=== PATIENT | female | born 1950 | race Caucasian/White ===

== ENCOUNTER 2017-05-01 15:20 | Inpatient (IN) | payer OTHER ==
[~2017-05-01] VITALS: Ht 172.7 cm; Wt 87.2 kg
[~2017-05-01 15:20] MED LIST: ASPI325 PO; ASPI325EC PO
[2017-05-01 16:35] LABS: BASOPHILS ABSOLUTE AUTO 0.02 K/mm3 (0.00-0.23); BASOPHILS PERCENT AUTO 0 % (0-2); EOSINOPHILS PERCENT AUTO 0 % (0-6); Hematocrit 42.7 % (33.0-51.0); Hemoglobin 13.7 g/dL (11.5-16.0); IMMATURE GRAN ABSOLUTE AUTO 0.06 K/mm3 (0.00-0.10); IMMATURE GRAN PERCENT AUTO 1 % (0-1); LYMPHOCYTES ABSOLUTE AUTO 0.73 K/mm3 (0.84-5.20); LYMPHOCYTES PERCENT AUTO 8 % (21-46); MONOCYTES ABSOLUTE AUTO 0.55 K/mm3 (0.16-1.47); MONOCYTES PERCENT AUTO 6 % (4-13); Mean Corpuscular HGB 28.3 pg (26.0-34.0); Mean Corpuscular HGB Conc 32.1 g/dL (31.5-36.5); Mean Corpuscular Volume 88 fL (80-100); Mean Platelet Volume 10.1 fL (9.1-12.4); NEUTROPHILS PERCENT AUTO 85 % (41-73); Platelet Count 175 K/mm3 (150-400); RDW Coefficient Variation 12.5 % (11.7-14.2); RDW Standard Deviation 40.8 fL (35.1-46.3); Red Blood Cell Count 4.84 M/mm3 (3.80-5.20); White Blood Cell Count 9.26 K/mm3 (4.00-11.30)
[2017-05-01 16:48] LABS: International Normalized Ratio 0.96
[2017-05-01 16:52] LABS: Alanine Aminotransfer (ALT/SGP 17 U/L (12-78); Albumin, Blood 2.6 g/dL (3.4-5.0); Albumin/Globulin Ratio 0.5 (0.8-1.8); Alk Phos 130 U/L (50-136); Anion Gap 12 mmol/L (6-16); Aspartate Aminotrans (AST/SGOT 26 U/L (12-37); Bilirubin, Total 0.5 mg/dL (0.1-1.0); Blood Urea Nitrogen 29 mg/dL (8-24); Bun/Creatinine Ratio 43.7 (12.0-20.0); CO2, Blood 27 mmol/L (21-32); Calcium, Blood 8.4 mg/dL (8.5-10.1); Chloride, Blood 92 mmol/L (98-108); Creatinine, Blood 0.66 mg/dL (0.40-1.00); Globulin, Blood 4.8 g/dL (2.2-4.0); Glomerular Filtration Rate >60 (60-); Glucose, Blood 329 mg/dL (70-99); Potassium, Blood 4.1 mmol/L (3.5-5.5); Sodium, Blood 131 mmol/L (136-145); Total Protein, Blood 7.4 g/dL (6.4-8.2)
[2017-05-01 18:04] LABS: Influenza A Negative (NEGATIVE); Influenza B Negative (NEGATIVE)
[2017-05-01] MEDS ORDERED: ACET325 PO (22:05)
[2017-05-01] MEDS ORDERED: ASPI325 PO (22:07)
[2017-05-01 23:06] LABS: Adenovirus Not Detected (NOT DETECT); Bordetella pertussis Not Detected (NOT DETECT); Chlamydophila pneumoniae Not Detected (NOT DETECT); Coronavirus 229E Not Detected (NOT DETECT); Coronavirus HKU1 Not Detected (NOT DETECT); Coronavirus NL63 Not Detected (NOT DETECT); Coronavirus OC43 Not Detected (NOT DETECT); Human Metapneumovirus Not Detected (NOT DETECT); Human Rhinovirus/Enterovirus Not Detected (NOT DETECT); Influenza A/2009-H1 Not Detected (NOT DETECT); Influenza A/H1 Not Detected (NOT DETECT); Influenza A/H3 Not Detected (NOT DETECT); Influenza B Not Detected (NOT DETECT); Mycoplasma pneumoniae Not Detected (NOT DETECT); Parainfluenza Virus 1 Not Detected (NOT DETECT); Parainfluenza Virus 2 Not Detected (NOT DETECT); Parainfluenza Virus 3 Not Detected (NOT DETECT); Parainfluenza Virus 4 Not Detected (NOT DETECT); Respiratory Syncytial Virus Not Detected (NOT DETECT)
[2017-05-02 01:26] LABS: Influenza A Not Detected (NOT DETECT)
[2017-05-02 02:41] LABS: Source, Urine Voided
[2017-05-02 02:44] LABS: Bilirubin, Urine Neg (Neg); Blood, Urine 3+ (Neg); Glucose Qualitative, Urine 4+ (Neg); Ketones, Urine 3+ (Neg); Leukocyte Esterase, Urine Neg (Neg); Nitrite, Urine Neg (Neg); Protein, Urine 4+ (Neg); Specific Gravity, Urine 1.015 (1.003-1.022); Urobilinogen, Urine NORM (Normal)
[2017-05-02 03:05] LABS: Appearance, Urine Hazy (Clear); Color, Urine Yellow (P-Yellow)
[2017-05-02 03:09] LABS: Amorphous Mod (0-Heavy); Bacteria Few /hpf; Squamous Epithelial Cells Mod /hpf (Few); White Blood Cells, Urine Rare /hpf (0-5)
[2017-05-02 05:34] LABS: BASOPHILS ABSOLUTE AUTO 0.03 K/mm3 (0.00-0.23); BASOPHILS PERCENT AUTO 0 % (0-2); Hematocrit 43.1 % (33.0-51.0); Hemoglobin 13.6 g/dL (11.5-16.0); LYMPHOCYTES ABSOLUTE AUTO 0.51 K/mm3 (0.84-5.20); LYMPHOCYTES PERCENT AUTO 6 % (21-46); MONOCYTES ABSOLUTE AUTO 0.39 K/mm3 (0.16-1.47); MONOCYTES PERCENT AUTO 5 % (4-13); Mean Corpuscular HGB 28.5 pg (26.0-34.0); Mean Corpuscular HGB Conc 31.6 g/dL (31.5-36.5); Mean Corpuscular Volume 90 fL (80-100); Mean Platelet Volume 9.9 fL (9.1-12.4); Platelet Count 200 K/mm3 (150-400); RDW Coefficient Variation 12.9 % (11.7-14.2); RDW Standard Deviation 42.6 fL (35.1-46.3); Red Blood Cell Count 4.77 M/mm3 (3.80-5.20); White Blood Cell Count 7.91 K/mm3 (4.00-11.30)
[2017-05-02 05:41] LABS: EOSINOPHILS PERCENT AUTO 0 % (0-6); IMMATURE GRAN ABSOLUTE AUTO 0.11 K/mm3 (0.00-0.10); IMMATURE GRAN PERCENT AUTO 1 % (0-1); NEUTROPHILS ABSOLUTE AUTO 6.87 K/mm3 (1.96-9.15); NEUTROPHILS PERCENT AUTO 87 % (41-73)
[2017-05-02 06:01] LABS: Anion Gap 10 mmol/L (6-16); Blood Urea Nitrogen 31 mg/dL (8-24); Bun/Creatinine Ratio 42.3 (12.0-20.0); CO2, Blood 24 mmol/L (21-32); Chloride, Blood 96 mmol/L (98-108); Creatinine, Blood 0.73 mg/dL (0.40-1.00); Glomerular Filtration Rate >60 (60-); Glucose, Blood 382 mg/dL (70-99); Potassium, Blood 4.7 mmol/L (3.5-5.5); Sodium, Blood 130 mmol/L (136-145)
[2017-05-02 10:46] LABS: Source, Urine Catheter
[2017-05-02 11:04] LABS: Bilirubin, Urine Neg (Neg); Blood, Urine 1+ (Neg); Glucose Qualitative, Urine 4+ (Neg); Ketones, Urine 1+ (Neg); Leukocyte Esterase, Urine Neg (Neg); Nitrite, Urine Neg (Neg); Protein, Urine 3+ (Neg); Urobilinogen, Urine NORM (Normal)
[2017-05-02 11:10] LABS: Appearance, Urine Cloudy (Clear); Color, Urine Yellow (P-Yellow)
[2017-05-02 11:14] LABS: Amorphous Heavy (0-Heavy); Bacteria Few /hpf; Red Blood Cells, Urine 0-2 /hpf (0-2); Squamous Epithelial Cells Not Seen /hpf (Few); White Blood Cells, Urine 0-2 /hpf (0-5)
[2017-05-02 13:55] LABS: Glucose, Blood 551 mg/dL (70-99)
[2017-05-02 18:13] LABS: Anion Gap 8 mmol/L (6-16); Blood Urea Nitrogen 34 mg/dL (8-24); Bun/Creatinine Ratio 38.7 (12.0-20.0); CO2, Blood 26 mmol/L (21-32); Calcium, Blood 7.9 mg/dL (8.5-10.1); Chloride, Blood 97 mmol/L (98-108); Creatinine, Blood 0.88 mg/dL (0.40-1.00); Glomerular Filtration Rate >60 (60-); Glucose, Blood 433 mg/dL (70-99); Potassium, Blood 4.7 mmol/L (3.5-5.5); Sodium, Blood 131 mmol/L (136-145)
[2017-05-03 05:14] LABS: Hematocrit 37.1 % (33.0-51.0); Mean Corpuscular HGB 28.4 pg (26.0-34.0); Mean Corpuscular HGB Conc 32.3 g/dL (31.5-36.5); Mean Corpuscular Volume 88 fL (80-100); Mean Platelet Volume 10.1 fL (9.1-12.4); Platelet Count 231 K/mm3 (150-400); RDW Coefficient Variation 12.9 % (11.7-14.2); RDW Standard Deviation 41.4 fL (35.1-46.3); Red Blood Cell Count 4.23 M/mm3 (3.80-5.20); White Blood Cell Count 7.99 K/mm3 (4.00-11.30)
[2017-05-03 05:35] LABS: Anion Gap 4 mmol/L (6-16); Blood Urea Nitrogen 34 mg/dL (8-24); Bun/Creatinine Ratio 43.1 (12.0-20.0); CO2, Blood 27 mmol/L (21-32); Calcium, Blood 7.8 mg/dL (8.5-10.1); Chloride, Blood 99 mmol/L (98-108); Creatinine, Blood 0.79 mg/dL (0.40-1.00); Glomerular Filtration Rate >60 (60-); Glucose, Blood 310 mg/dL (70-99); Sodium, Blood 130 mmol/L (136-145)
[2017-05-05 05:44] LABS: Hematocrit 37.4 % (33.0-51.0); Hemoglobin 12.2 g/dL (11.5-16.0); Mean Corpuscular HGB Conc 32.6 g/dL (31.5-36.5); Mean Corpuscular Volume 86 fL (80-100); Mean Platelet Volume 9.6 fL (9.1-12.4); Platelet Count 285 K/mm3 (150-400); RDW Coefficient Variation 12.9 % (11.7-14.2); RDW Standard Deviation 40.3 fL (35.1-46.3); Red Blood Cell Count 4.36 M/mm3 (3.80-5.20); White Blood Cell Count 8.93 K/mm3 (4.00-11.30)
[2017-05-05 06:11] LABS: Anion Gap 7 mmol/L (6-16); Blood Urea Nitrogen 27 mg/dL (8-24); Bun/Creatinine Ratio 41.9 (12.0-20.0); CO2, Blood 27 mmol/L (21-32); Calcium, Blood 8.6 mg/dL (8.5-10.1); Chloride, Blood 95 mmol/L (98-108); Creatinine, Blood 0.64 mg/dL (0.40-1.00); Glomerular Filtration Rate >60 (60-); Glucose, Blood 258 mg/dL (70-99); Potassium, Blood 4.8 mmol/L (3.5-5.5); Sodium, Blood 129 mmol/L (136-145)
[2017-05-06 06:16] LABS: Anion Gap 9 mmol/L (6-16); Blood Urea Nitrogen 29 mg/dL (8-24); Bun/Creatinine Ratio 43.1 (12.0-20.0); CO2, Blood 26 mmol/L (21-32); Chloride, Blood 92 mmol/L (98-108); Creatinine, Blood 0.67 mg/dL (0.40-1.00); Glomerular Filtration Rate >60 (60-); Glucose, Blood 362 mg/dL (70-99); Sodium, Blood 127 mmol/L (136-145)
[2017-05-07] MEDS ORDERED: AMLO5 PO (11:19)
[2017-05-07] MEDS ORDERED: Mucinex600 MG PO (11:24)
[2017-05-07] MEDS ORDERED: LISI20 PO (11:25)
[2017-05-07] MEDS ORDERED: ALBU90OI6 INH (11:26)
[2017-05-07] MEDS ORDERED: DOXY100 PO (11:27)
[2017-05-07] MEDS ORDERED: DELTASONE20 MG PO (11:31)
== END 2017-05-07 12:30 | disposition home or self-care (01) | DRG 189 ==
LOC: ER 15:20 → MEDS 20:06
PROVIDERS: Emergency Medicine; Hospitalist; Internal Medicine; Nurse Practitioner Family
DX: J96.01 Acute respiratory failure with hypoxia (principal); J18.9 Pneumonia, unspecified organism; E11.65 Type 2 diabetes mellitus with hyperglycemia; I31.3 Pericardial effusion (noninflammatory); E87.1 Hypo-osmolality and hyponatremia; I10 Essential (primary) hypertension
CPT/HCPCS: 36415; 71046; 71260; 80048; 80053; 81001; 82947; 83036; 83605; 84145; 85025; 85027; 85610; 85730; 87040; 87070; 87086; 87147; 87205; 87486; 87581; 87633; 87798; 87804; 90670; 93005; 93010; 93306; 94640; 94760; 96374; 99285; J0360; J0456; J0696; J1650; J1815; J1885; J2405; J2920; J3480; J7030; J7050; Q9967

== ENCOUNTER 2019-08-10 10:15 | Inpatient (IN) | payer OTHER ==
[~2019-08-10] VITALS: Ht 172.7 cm; Wt 104.7 kg
[~2019-08-10 10:15] MED LIST changes: +ACET325 PO; +ALBU90OI6 INH; +AMLO5 PO; +DELTASONE20 MG PO; +DOXY100 PO; +LISI20 PO; +Mucinex600 MG PO
[2019-08-10 11:07] LABS: BASOPHILS ABSOLUTE AUTO 0.06 K/mm3 (0.00-0.23); BASOPHILS PERCENT AUTO 1 % (0-2); EOSINOPHILS ABSOLUTE AUTO 0.13 K/mm3 (0.00-0.68); EOSINOPHILS PERCENT AUTO 2 % (0-6); Hematocrit 32.1 % (33.0-51.0); Hemoglobin 9.5 g/dL (11.5-16.0); IMMATURE GRAN ABSOLUTE AUTO 0.02 K/mm3 (0.00-0.10); IMMATURE GRAN PERCENT AUTO 0 % (0-1); LYMPHOCYTES ABSOLUTE AUTO 1.14 K/mm3 (0.84-5.20); LYMPHOCYTES PERCENT AUTO 16 % (21-46); MONOCYTES ABSOLUTE AUTO 0.35 K/mm3 (0.16-1.47); MONOCYTES PERCENT AUTO 5 % (4-13); Mean Corpuscular HGB 29.5 pg (26.0-34.0); Mean Corpuscular HGB Conc 29.6 g/dL (31.5-36.5); Mean Corpuscular Volume 100 fL (80-100); Mean Platelet Volume 9.3 fL (9.1-12.4); NEUTROPHILS ABSOLUTE AUTO 5.38 K/mm3 (1.96-9.15); NEUTROPHILS PERCENT AUTO 76 % (41-73); Platelet Count 260 K/mm3 (150-400); RDW Coefficient Variation 14.2 % (11.7-14.2); RDW Standard Deviation 52.3 fL (35.1-46.3); Red Blood Cell Count 3.22 M/mm3 (3.80-5.20); White Blood Cell Count 7.08 K/mm3 (4.00-11.30)
[2019-08-10 11:26] LABS: Albumin, Blood 2.9 g/dL (3.4-5.0); Albumin/Globulin Ratio 0.7 (0.8-1.8); Bilirubin, Total 0.5 mg/dL (0.1-1.0); Bun/Creatinine Ratio 12.2 (12.0-20.0); Calcium, Blood 7.8 mg/dL (8.5-10.1); Creatinine, Blood 5.49 mg/dL (0.40-1.00); Globulin, Blood 3.9 g/dL (2.2-4.0); Potassium, Blood 4.7 mmol/L (3.5-5.5); Total Protein, Blood 6.8 g/dL (6.4-8.2)
[2019-08-10] MEDS ORDERED: BASAGLAR K100 UNIT/1 SC (11:46)
[2019-08-10 13:08] LABS: Beta-hydroxybutyrate 3.2 mg/dL (0.2-2.8); Magnesium, Blood 2.2 mg/dL (1.6-2.4); Phosphorus, Blood 7.6 mg/dL (2.5-4.9)
--- NOTE | 2019-08-10 17:54 | NUR ---
PT arrived to [facility] 14 via gurney from ED, report obtained from Roxy NGUYEN, she is able to stand and transfer to bed indep, a/ox3, pleasant and cooperative with care, follows commands well, denies pain at this time, lungs are clear a bit dim in bases, resp even and unlabored, no cough noted, hrr, tele in place running sr per monitor, see strip, no edema noted, ppp+1, cap refill <3sec, vs stable, afebrile, iv site to r wrist, site is resistant to flush, and puffing up, will place new one, btx4, abd flat soft nontender, attempted to void, was unable, did bladder scan showed 745mls, asked her to try again, then will call for llanes order, she then was able to void 650mls, skin is very frai, with a scab to right wrist, states her dog got her, her legs look like motteling, pt states its from her fireplace as she has neuropathy and she can't feel the heat, michelle parry, oriented to room layout and call system, call light in reach.
[2019-08-10 19:18] LABS: Albumin, Blood 3.2 g/dL (3.4-5.0); Anion Gap 10 mmol/L (6-16); Blood Urea Nitrogen 66 mg/dL (8-24); Bun/Creatinine Ratio 12.5 (12.0-20.0); CO2, Blood 19 mmol/L (21-32); Calcium, Blood 8.4 mg/dL (8.5-10.1); Chloride, Blood 105 mmol/L (98-108); Creatinine, Blood 5.29 mg/dL (0.40-1.00); Glomerular Filtration Rate 9 (60-); Glucose, Blood 77 mg/dL (70-99); Phosphorus, Blood 7.2 mg/dL (2.5-4.9); Potassium, Blood 4.5 mmol/L (3.5-5.5); Sodium, Blood 134 mmol/L (136-145)
--- NOTE | 2019-08-10 22:00 | NUR ---
ASSUMED CARE OF PATIENT AT APPROXIMATELY 1900 FROM DALIA Robbins RN. PATIENT ALERT AND ORIENTED X4; SBA OUT OF BED. SON VISITING IN ROOM DURING BEDSIDE REPORT. PATIENT DENIES PAIN, NUMBNESS, TINGLING, DIZZINESS OR NAUSEA. NSR ON TELE; OXYGEN SATURATION ABOVE 90% ON ROOM AIR. HYPERTENSIVE; PRN LABETOLOL GIVEN WITH GOOD RESULTS. IVF INFUSING PER ORDER. PATIENT CURRENTLY RESTING IN BED; CALL LIGHT IN REACH; BED IN LOWEST POSISTION; BED ALARM ON; WILL CONTINUE TO MONITOR AND ASSESS UNTIL END OF SHIFT.
[2019-08-10 22:13] LABS: Albumin, Blood 2.9 g/dL (3.4-5.0); Anion Gap 9 mmol/L (6-16); Blood Urea Nitrogen 66 mg/dL (8-24); Bun/Creatinine Ratio 12.6 (12.0-20.0); CO2, Blood 20 mmol/L (21-32); Calcium, Blood 8.3 mg/dL (8.5-10.1); Chloride, Blood 107 mmol/L (98-108); Creatinine, Blood 5.24 mg/dL (0.40-1.00); Glomerular Filtration Rate 9 (60-); Glucose, Blood 101 mg/dL (70-99); Phosphorus, Blood 6.9 mg/dL (2.5-4.9); Potassium, Blood 4.6 mmol/L (3.5-5.5); Sodium, Blood 136 mmol/L (136-145)
[2019-08-11 01:01] LABS: Source, Urine Catheter
[2019-08-11 01:10] LABS: Bilirubin, Urine Neg (Neg); Blood, Urine 1+ (Neg); Glucose Qualitative, Urine 1+ (Neg); Ketones, Urine Neg (Neg); Leukocyte Esterase, Urine Neg (Neg); Nitrite, Urine Neg (Neg); Protein, Urine 4+ (Neg); Specific Gravity, Urine 1.015 (1.003-1.022); Urobilinogen, Urine NORM (Normal)
[2019-08-11 01:26] LABS: Appearance, Urine Clear (Clear); Color, Urine Pale Yellow (P-Yellow)
[2019-08-11 01:27] LABS: Amorphous Light (0-Heavy); Bacteria Rare /hpf; Red Blood Cells, Urine 0-2 /hpf (0-2); Squamous Epithelial Cells Rare /hpf (Few); White Blood Cells, Urine Rare /hpf (0-5)
[2019-08-11 02:20] LABS: Albumin, Blood 2.8 g/dL (3.4-5.0); Anion Gap 8 mmol/L (6-16); Blood Urea Nitrogen 62 mg/dL (8-24); Bun/Creatinine Ratio 11.8 (12.0-20.0); CO2, Blood 21 mmol/L (21-32); Chloride, Blood 106 mmol/L (98-108); Creatinine, Blood 5.26 mg/dL (0.40-1.00); Glomerular Filtration Rate 9 (60-); Glucose, Blood 115 mg/dL (70-99); Phosphorus, Blood 7.2 mg/dL (2.5-4.9); Potassium, Blood 4.5 mmol/L (3.5-5.5); Sodium, Blood 135 mmol/L (136-145)
--- NOTE | 2019-08-11 05:32 | NUR ---
CALLED SHAWN TRUJILLO AT APPROXIMATELY 2330 TO REPORTS PATIENT "HUNGER PAINS" AND PATIENT REQUESTED MILK; DIET ADVANCED TO FULL LIQUID. UPDATED SHAWN TRUJILLO ON PATIENT'S BP; NEED TO PRN IV BP MEDICATION AND IVF AT 200MLS/HR; NEW ORDERS RECIEVED. URINARY CATH PLACED; UA SENT. VSS. PATIENT NAUSEOUS; REPORTS SHE WAS DRY HEAVING THAT WOKE HER UP; MEDICATED PER EMAR. WILL CONTINUE TO MONITOR AND ASSESS UNTIL END OF SHIFT.
[2019-08-11 06:11] LABS: BASOPHILS ABSOLUTE AUTO 0.06 K/mm3 (0.00-0.23); BASOPHILS PERCENT AUTO 1 % (0-2); EOSINOPHILS ABSOLUTE AUTO 0.06 K/mm3 (0.00-0.68); EOSINOPHILS PERCENT AUTO 1 % (0-6); Hematocrit 26.7 % (33.0-51.0); Hemoglobin 8.4 g/dL (11.5-16.0); IMMATURE GRAN ABSOLUTE AUTO 0.01 K/mm3 (0.00-0.10); IMMATURE GRAN PERCENT AUTO 0 % (0-1); LYMPHOCYTES PERCENT AUTO 14 % (21-46); MONOCYTES ABSOLUTE AUTO 0.41 K/mm3 (0.16-1.47); MONOCYTES PERCENT AUTO 6 % (4-13); Mean Corpuscular HGB 29.4 pg (26.0-34.0); Mean Corpuscular HGB Conc 31.5 g/dL (31.5-36.5); Mean Platelet Volume 9.3 fL (9.1-12.4); NEUTROPHILS ABSOLUTE AUTO 5.63 K/mm3 (1.96-9.15); NEUTROPHILS PERCENT AUTO 79 % (41-73); Platelet Count 226 K/mm3 (150-400); RDW Coefficient Variation 14.1 % (11.7-14.2); Red Blood Cell Count 2.86 M/mm3 (3.80-5.20); White Blood Cell Count 7.17 K/mm3 (4.00-11.30)
[2019-08-11 06:16] LABS: Mean Corpuscular Volume 93 fL (80-100)
[2019-08-11 06:28] LABS: Albumin, Blood 2.9 g/dL (3.4-5.0); Anion Gap 9 mmol/L (6-16); Blood Urea Nitrogen 62 mg/dL (8-24); Bun/Creatinine Ratio 11.5 (12.0-20.0); CO2, Blood 22 mmol/L (21-32); Calcium, Blood 8.1 mg/dL (8.5-10.1); Chloride, Blood 103 mmol/L (98-108); Creatinine, Blood 5.38 mg/dL (0.40-1.00); Glomerular Filtration Rate 8 (60-); Glucose, Blood 102 mg/dL (70-99); Phosphorus, Blood 7.1 mg/dL (2.5-4.9); Potassium, Blood 4.6 mmol/L (3.5-5.5); Sodium, Blood 134 mmol/L (136-145)
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
[2019-08-11 13:20] LABS: Percent Saturation 30.8 % (15.0-50.0)
--- NOTE | 2019-08-11 14:00 | NUR ---
pt resting when left undisturbed, iv fluids were changed to d5 1/2 ns at 150mls/hr, denies complaints of pain, states shes doing ok. call light in reach.
--- NOTE | 2019-08-11 18:18 | NUR ---
pt had one episode of nausia, the smell of food contibutes to that. she was treated with zofran which was effective. no acute changes this shift, call light in reach.
[2019-08-12 04:53] LABS: BASOPHILS ABSOLUTE AUTO 0.04 K/mm3 (0.00-0.23); BASOPHILS PERCENT AUTO 1 % (0-2); EOSINOPHILS PERCENT AUTO 1 % (0-6); Hematocrit 25.3 % (33.0-51.0); IMMATURE GRAN ABSOLUTE AUTO 0.03 K/mm3 (0.00-0.10); IMMATURE GRAN PERCENT AUTO 0 % (0-1); LYMPHOCYTES ABSOLUTE AUTO 1.05 K/mm3 (0.84-5.20); LYMPHOCYTES PERCENT AUTO 14 % (21-46); MONOCYTES PERCENT AUTO 7 % (4-13); Mean Corpuscular HGB 29.5 pg (26.0-34.0); Mean Corpuscular HGB Conc 31.6 g/dL (31.5-36.5); Mean Corpuscular Volume 93 fL (80-100); Mean Platelet Volume 9.4 fL (9.1-12.4); NEUTROPHILS ABSOLUTE AUTO 6.01 K/mm3 (1.96-9.15); NEUTROPHILS PERCENT AUTO 78 % (41-73); Platelet Count 208 K/mm3 (150-400); RDW Coefficient Variation 13.7 % (11.7-14.2); Red Blood Cell Count 2.71 M/mm3 (3.80-5.20); White Blood Cell Count 7.73 K/mm3 (4.00-11.30)
[2019-08-12 05:17] LABS: Albumin, Blood 2.7 g/dL (3.4-5.0); Albumin/Globulin Ratio 0.8 (0.8-1.8); Bilirubin, Total 0.3 mg/dL (0.1-1.0); Bun/Creatinine Ratio 10.9 (12.0-20.0); Calcium, Blood 7.4 mg/dL (8.5-10.1); Creatinine, Blood 5.21 mg/dL (0.40-1.00); Globulin, Blood 3.3 g/dL (2.2-4.0); Magnesium, Blood 1.9 mg/dL (1.6-2.4); Potassium, Blood 4.3 mmol/L (3.5-5.5)
--- NOTE | 2019-08-12 06:23 | NUR ---
PATIENT ALERT AND ORIENTED, COMPLAINING OF ABDOMINAL DISCOMFORT ALONG WITH NAUSEA. PATIENT STATED THAT SHE HAS HAD NO BOWEL MOVEMENT SINCE TUESDAY. PATIENT ON FULL LIQUID DIET BUT UNABLE TO FINISH MUCH OF HER MEALS AND HAS HAD POOR INTAKE SINCE ADMISSION. CREATININE STILL ELEVATED, IV FLUIDS INFUSING PER ORDER. NORMAL SINUS RHYTHM ON MONITOR. NEEDING ASSISTANCE X1 TO BEDISDE COMMODE. PATIENT HAD SEVERAL BOWEL MOVEMENTS TODAY. STATED THAT SHE MORE COMFORTABLE AFTER DOING SO. STOOL SAMPLE SENT TO TEST FOR FECAL OCCULT BLOOD. CALL LIGHT WITHIN REACH. WILL CONTINUE TO MONITOR UNTIL END OF SHIFT.
--- NOTE | 2019-08-12 07:36 | NUR ---
pt laying in bed with eyes closed, wakes easily, reports she didn't sleep well last night but did have two large bm's and feels some better after, reports one bout of nausia but passed on it's own, lungs are clear t/o, resp even and unlabored, no cough noted, hrr, tele in place running sr per monitor, see strip, no edema noted, ppp+2, cap refill <3sec, vs stale, afebrile, iv sites are clear and patent, infusing d5 1/2na at 150mls/hr, btx4, abd flat soft nontender, llanes cath in place for retention, draining well, skin has a scab to right wrist, maew, general weakness, michelle, call light in reach.
--- NOTE | 2019-08-12 13:42 | NUR ---
PT HAS BEEN TRANSFERRED TO MEDICAL FLOOR VIA WHEELCHAIR, REPORT GIVEN, ALL BELONGINGS WENT WITH HER.
--- NOTE | 2019-08-12 13:45 | NUR ---
Assumed Care Received call back from reporting RN Tim @ 0640. Patient arrived via w/c. NS infusing @ 100 mLs/hr. A/O, transferred c 1p from w/c to bed. States abdomen is doing much better. No complaints of nausea. Settled into room, call light near, bed in lowest position. Will continue to monitor.
[2019-08-12 13:46] LABS: Stool Occult Blood Guaiac 1 Neg (Neg)
--- NOTE | 2019-08-12 17:40 | NUR ---
Shift Summary A/Ox4, pleasant and cooperative, able to make needs known. Medicated for nausea x 1 with moderately good result. Medicated for SBP 168 also with good results. Appetite was poor, PO liquid intake is good. No other complaints or concerns. Will continue to monitor.
[2019-08-13 04:34] LABS: Hematocrit 25.3 % (33.0-51.0); Hemoglobin 8.1 g/dL (11.5-16.0)
[2019-08-13 04:58] LABS: Albumin, Blood 2.7 g/dL (3.4-5.0); Anion Gap 8 mmol/L (6-16); Blood Urea Nitrogen 52 mg/dL (8-24); Bun/Creatinine Ratio 10.4 (12.0-20.0); CO2, Blood 23 mmol/L (21-32); CPK Creatine Kinase 107 U/L (26-193); Calcium, Blood 7.4 mg/dL (8.5-10.1); Chloride, Blood 101 mmol/L (98-108); Glomerular Filtration Rate 9 (60-); Glucose, Blood 94 mg/dL (70-99); Magnesium, Blood 1.8 mg/dL (1.6-2.4); Phosphorus, Blood 6.5 mg/dL (2.5-4.9); Potassium, Blood 4.3 mmol/L (3.5-5.5); Sodium, Blood 132 mmol/L (136-145); Uric Acid, Blood 5.2 mg/dL (2.6-6.0)
--- NOTE | 2019-08-13 05:19 | NUR ---
SHIFT SUMMARY- PT. PLEASANT AND COOPERATIVE WITH CARE. HAD A RESTFUL NIGHT. NO APPARENT DISTRESS NOTED. PT. C/O MILD NA BUT NO VOMITING OR DIARRHEA. MEDICATED PER EMAR WITH GOOD EFFECT. PT. DENIED ANY PAIN OR DISCOMFORT T/O THE NIGHT. BP MILDLY ELEVATED, TX W/HYDRALAZINE PER EMAR, WILL CONT TO MONITOR VITALS. NO ACUTE CHANGES TO CONDITION. PT. DENIES ANY NEEDS AT THIS TIME. 24HR URINE STARTED THIS AM PER ORDER. CALL LIGHT WITHIN REACH AND SIDE RAILS UP X2. WILL CONT TO MONITOR.
--- NOTE | 2019-08-13 18:19 | NUR ---
SHIFT SUMMARY PT IS ALERT AND ORIENTED, NO ACUTE CHANGES DURING SHIFT. SPENCER REMAINS IN PLACE DRAINING CLEAR YELLOW URINE AND IS CURRENTLY HAVING A 24HOUR URINE COLLECTED. PT REPORTS N/V IMPROVING BUT FEELS HER STOOLS ARE STILL LOOSE. DIET WAS ADVANCED BY MD TODAY AND FIRST SOLID MEAL IS DINNER. VITALS HAVE REMAINED STABLE TODAY.
--- NOTE | 2019-08-14 04:16 | NUR ---
SHIFT SUMMARY PT A/OX4. MEDICATED 2X FOR ELEVATED BP. NO ACUTE CHANGES T/O SHIFT. SPENCER CATH IN PLACE DRAINING CLEAR YELLOW URINE; AWAITING 24HR URINE TO FINISH THIS MORNING. DENIED N/V OR PAIN. PT ABLE TO REPOSITION SELF IN BED. IVF INFUSING PER ORDERS. BARRY PO INTAKE. PT APPEARS TO BE CURRENTLY RESTING IN BED COMFORTABLY WIHT CALL LIGHT IN REACH. WILL CONT TO MONITOR AND GIVE REPORT TO ONCOMING RN.
[2019-08-14 05:05] LABS: Hematocrit 23.9 % (33.0-51.0); Hemoglobin 7.5 g/dL (11.5-16.0)
[2019-08-14 05:28] LABS: Albumin, Blood 2.5 g/dL (3.4-5.0); Anion Gap 10 mmol/L (6-16); Blood Urea Nitrogen 53 mg/dL (8-24); Bun/Creatinine Ratio 11.4 (12.0-20.0); CO2, Blood 20 mmol/L (21-32); Calcium, Blood 7.3 mg/dL (8.5-10.1); Chloride, Blood 102 mmol/L (98-108); Creatinine, Blood 4.63 mg/dL (0.40-1.00); Glomerular Filtration Rate 10 (60-); Glucose, Blood 96 mg/dL (70-99); Magnesium, Blood 1.8 mg/dL (1.6-2.4); Phosphorus, Blood 6.6 mg/dL (2.5-4.9); Potassium, Blood 4.2 mmol/L (3.5-5.5); Sodium, Blood 132 mmol/L (136-145)
--- NOTE | 2019-08-14 05:36 | NUR ---
DR. SHORE IN TO SEE PT AT THIS TIME. NEW ORDER TO TURN IVF RATE TO 75 OBTAINED.
[2019-08-14 05:49] LABS: Protein, Urine Quantitative 212.5 mg/dL (0.0-11.9)
--- NOTE | 2019-08-14 06:32 | NUR ---
NOTIFIED DR. SHORE OF TODAY'S H/H OF 7.5/23.9. NO NEW ORDERS AT THIS TIME
--- NOTE | 2019-08-14 18:10 | NUR ---
SHIFT SUMMARY PT IS ALERT AND ORIENT, FOLLOWS COMMANDS. TODAY PT HAS C/O ABD DISCOMFORT/BLOATING. PRN SIMETHICONE GIVEN TO PT WITH SOME IMPROVEMENT. NO BOWEL MOVENTS THIS SHIFT, PT IS PASSING GAS. PT ALSO REPORTS A DECREASE IN HER APPETITE TODAY. SPENCER REMAINS IN PLACE, DRAINING CLEAR YELLOW URINE. VITALS HAVE REMAINED STABLE TODAY.
[2019-08-15 04:52] LABS: Hematocrit 24.9 % (33.0-51.0); Hemoglobin 7.7 g/dL (11.5-16.0)
[2019-08-15 05:21] LABS: Albumin, Blood 2.5 g/dL (3.4-5.0); Anion Gap 8 mmol/L (6-16); Blood Urea Nitrogen 48 mg/dL (8-24); Bun/Creatinine Ratio 10.5 (12.0-20.0); CO2, Blood 20 mmol/L (21-32); Calcium, Blood 7.5 mg/dL (8.5-10.1); Chloride, Blood 105 mmol/L (98-108); Creatinine, Blood 4.59 mg/dL (0.40-1.00); Glomerular Filtration Rate 10 (60-); Glucose, Blood 80 mg/dL (70-99); Magnesium, Blood 1.8 mg/dL (1.6-2.4); Phosphorus, Blood 6.5 mg/dL (2.5-4.9); Potassium, Blood 4.3 mmol/L (3.5-5.5); Sodium, Blood 133 mmol/L (136-145)
--- NOTE | 2019-08-15 06:33 | NUR ---
SHIFT SUMMARY PT HAS HAD NO ACUTE CHANGES THIS SHIFT, NO C/O ANY KIND, PT BEDRESTING AT THIS TIME, CALL LIGHT IN REACH, WILL CONT TO MONITOR UNTIL REPORT GIVNE TO DAY RN.
[2019-08-15 13:08] LABS: ANA DIRECT Negative (Negative); ANTIGLOMERULAR BM AB 4 units (0-20); ANTIMYELOPEROXIDASE (MPO) ABS <9.0 U/mL (0.0-9.0); ANTIPROTEINASE 3 (PR-3) ABS <3.5 U/mL (0.0-3.5); ATYPICAL PANCA <1:20 titer (Neg:<1:20); CYTOPLASMIC (C-ANCA) <1:20 titer (Neg:<1:20); PERINUCLEAR (P-ANCA) <1:20 titer (Neg:<1:20)
[2019-08-15 15:08] LABS: A/G RATIO 1.2 (0.7-1.7); ALBUMIN 2.8 g/dL (2.9-4.4); ALPHA-1-GLOBULIN 0.2 g/dL (0.0-0.4); ALPHA-2-GLOBULIN 0.7 g/dL (0.4-1.0); BETA GLOBULIN 0.7 g/dL (0.7-1.3); GAMMA GLOBULIN 0.9 g/dL (0.4-1.8); GLOBULIN, TOTAL 2.5 g/dL (2.2-3.9); IMMUNOGLOBULIN A, QN, SERUM 290 mg/dL (87-352); IMMUNOGLOBULIN G, QN, SERUM 857 mg/dL (586-1602); IMMUNOGLOBULIN M, QN, SERUM 59 mg/dL (26-217); M-SPIKE Not Observed g/dL (Not Observed); PROTEIN, TOTAL, SERUM 5.3 g/dL (6.0-8.5)
--- NOTE | 2019-08-15 17:54 | NUR ---
PT AOX4 AND COOPERATIVE OF CARE. PT HAS BEEN UP FOR ALL MEALS AND WAS UP WALKING TODAY WITH PHYSICAL THERAPY. NO DISTRESS NOTED AT THIS TIME. PT CALLS APPROPRIATELY AND HAS CALL LIGHT WITHIN REACH. PT DID HAVE HIGH BP 189/90 AND WAS TREATED PER EMAR RECHECKED AND DOWN TO 172/88. WILL NOTIFY SHIFT COMMING ON TO MONITOR CLOSELY.
--- NOTE | 2019-08-15 18:10 | NUR ---
Initial spiritual care note: Lengthy conversation with Winnie this afternoon. She is very concerned and anxious. She tells me she still "doesn't feel right" and is concerned about going home too soon. 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 Winnie states that she is worried she may have cancer. She does not understand her dx. She admits "they keep telling me these numbers about my kidneys. I don't know what all this means." She is also concerned about her blood pressure and wonders if this is "one more thing" she is going to have to manage going forward. Winnie appears to put the health and happiness of ehr family far above caring for herself. Finances are limited and medical literacy is a bit low. Winnie will benefit from having her questions answered completely in a calm and understandable manner. She is fearful of , b/c her family depends on her. We had an easy rapport and Winnie seemed comfortable speaking to me about her past, her loved ones, the loss of her spouse and her fears. She has a history with the Receptor community, but has not been active. She allowed me to pray for her, and I made a referral to Palliative care RN for continued support. Son arrived and visit concluded. I will remain available.
--- NOTE | 2019-08-16 05:59 | NUR ---
SHIFT SUMMARY PT HAS HAD NO ACUTE CHANGES THIS SHIFT, NO C/O ANY KIND, MEDICATED 1X FOR HTN @ 0430 179/86, REASSESS BP 160/75. PT BEDRESTING WATCHING TV AT THIS TIME, CALL LIGHT IN REACH, WILL CONT TO MONITOR UNTIL REPORT GIVEN TO DAY RN.
[2019-08-16 06:13] LABS: Hematocrit 25.5 % (33.0-51.0)
[2019-08-16 06:51] LABS: Albumin, Blood 2.7 g/dL (3.4-5.0); Anion Gap 9 mmol/L (6-16); Blood Urea Nitrogen 43 mg/dL (8-24); Bun/Creatinine Ratio 9.8 (12.0-20.0); CO2, Blood 18 mmol/L (21-32); Calcium, Blood 7.8 mg/dL (8.5-10.1); Chloride, Blood 104 mmol/L (98-108); Creatinine, Blood 4.41 mg/dL (0.40-1.00); Glomerular Filtration Rate 11 (60-); Glucose, Blood 93 mg/dL (70-99); Magnesium, Blood 1.8 mg/dL (1.6-2.4); Phosphorus, Blood 5.9 mg/dL (2.5-4.9); Potassium, Blood 4.5 mmol/L (3.5-5.5); Sodium, Blood 131 mmol/L (136-145)
--- NOTE | 2019-08-16 09:39 | NUR ---
Attempted to visit. Pt is on the phone for an extended conversation. I will try back to address education needs r/t health management expressed to Consulting Sales Manager. Will update pt's RN on questions pt has expressed for ongoing teaching needs also.
--- NOTE | 2019-08-16 10:30 | NUR ---
Pal Care visit: Long visit and return visit with education materials provided to pt on managing stress/change and managing hypertention. Visit made to answer questions pt had expressed to the proofer black and white re: terminal gauger management of some of her chronic conditions and how HTN and her DM affected her kidney function. Pt had been on the phone for approx 30 minutes before my visit. She was receptive and welcoming. She reports much less apprehension and anxiety after speaking with the Plant Chief yest pm and also the dietitian again re: dietary management of gall bladder s/s and HTN as well as her DM. Pt feels she does a good job with her DM management and states her AIC is <7 now. She still gets nauseated if she smells grease or fat, ie if she drives by a fast food place and can smell bermudian fries grease. Otherwise she denies pain or nausea at this time. She spoke at length about family stressors and joys. She will have a week at home after d/c without her four grandchildren and allthough she will be missing them, she is looking forward to some quite recuperation time without the responsibilities in her own home. We talked about the need for pacing activity, rest and self care and returning to responsibilities with family "on light duty". Pt expressed gratitude for compassion and good care she feels she is receiving from staff. Case conferenced with RN, and Plant Chief and dietitian re: my visit. Reviewed educational materials on managing stress and HTN with pt and asked her to have her son read them aloud to her at home again, due to her poor vision. She anticipates going home later this week per her conversation with Dr Hutchins this am. visit.
--- NOTE | 2019-08-16 17:11 | NUR ---
SHIFT SUMMARY- PT A/O, SBA WITH FWW TO BATHROOM. PT HAS BEEN INDEP UP TO CHAIR. PT DENIES ANY COMPLAINTS T/O THE DAY. LS CLEAR, ON RASejal SPENCER DC'D THIS AFTERNOON. BP'S CONT TO BE ELEVATED WITH SBP IN THE 150'S TODAY, NORVASC INCREASED. PT REMAINS ON NS AT 75ML/HR. NO BM'S THIS SHIFT. PT CONT TO REPORT POOR APETITE BUT IMPROVING, SUBSURFACE AUGMENTEE OPERATOR SPOKE WITH PT TODAY. BLOOD SUGARS WELL CONTROLLED. NO OTHER ACUTE CHANGES THIS SHIFT.
[2019-08-17 05:32] LABS: Hematocrit 23.2 % (33.0-51.0); Hemoglobin 7.2 g/dL (11.5-16.0)
[2019-08-17 06:01] LABS: Albumin, Blood 2.4 g/dL (3.4-5.0); Anion Gap 8 mmol/L (6-16); Blood Urea Nitrogen 42 mg/dL (8-24); Bun/Creatinine Ratio 10.2 (12.0-20.0); CO2, Blood 20 mmol/L (21-32); Calcium, Blood 7.4 mg/dL (8.5-10.1); Chloride, Blood 105 mmol/L (98-108); Creatinine, Blood 4.13 mg/dL (0.40-1.00); Glomerular Filtration Rate 11 (60-); Glucose, Blood 93 mg/dL (70-99); Phosphorus, Blood 6.1 mg/dL (2.5-4.9); Potassium, Blood 4.7 mmol/L (3.5-5.5); Sodium, Blood 133 mmol/L (136-145)
--- NOTE | 2019-08-17 06:25 | NUR ---
SHIFT SUMMARY PT HAS HAD NO ACUTE CHANGES THIS SHIFT, MEDICATED 2X FOR HTN, LAST BP 146/77, SPENCER REMOVED 08/15, PT DID NOT VOID UNTIL 08/16 @ 0600- VOIDED 500 MLS W/PVR OF 573MLS, REPORTED TO DR SHORE WHO STATED THAT WE WILL GIVE THE PT UNTIL LUNCHTIME TO SEE HOW SHE DOES WITHOUT REPLACING SPENCER, WILL PASS ON TO DAY RN & INPUT NURSE NOTIFY, PT BEDRESTING AT THIS TIME, CALL LIGHT IN REACH, WILL CONT TO MONITOR UNTIL REPORT GIVEN TO DAY RN.
--- NOTE | 2019-08-17 10:55 | NUR ---
CALLED DR SHORE- WHILE REVIEWING DR NOTE PLAN WAS TO GIVE [address] SHORE TO CLARIFY, ORDER NOT RECIEVED. DR WILL REVIEW AND PLACE THE ORDER. PT STATED SHE HAS NO PROBLEM RECIEVING BLOOD PRODUCTS.
--- NOTE | 2019-08-17 12:45 | NUR ---
TYPE AND CROSS COMPLETE. BLOOD VITALS PERFORMED, BLOOD VERIFIED WITH WENDY SANCHEZ. PT LUNG SOUNDS UNCHANGED FROM AM ASSESSMENT AT THIS TIME WILL CTM.
--- NOTE | 2019-08-17 13:00 | NUR ---
BLOOD VITALS- PT ALERT AND ORIENTED DISCUSSED THE SYMPTOMS OF TRANSFUSION REACTION PT AWARE. NO S&S OF REACTION, PT APPEARS STABLE AT THIS TIME, VS UNCHANGED, LUNG SOUNDS UNCHANGED. RATE INCREASED FROM STARTING RATE OF 75ML/HR TO 100ML/HR. WILL CTM.
--- NOTE | 2019-08-17 13:30 | NUR ---
BLOOD VITALS- PT APPEARS TO BE TOLLERATING THE TRANSFUSION WELL, RESP E/U VITALS IMPROVED VEW SCORE 0. PT DENIES ANY CP OR SOB AT THIS TIME; RATE INCREASED TO 125ML/HR, ORDER IN FOR IV LASIX DURING THE TRANSFUSION, WILL ADMINISTER ON NEXT VITALS.
--- NOTE | 2019-08-17 14:14 | NUR ---
Brief visit this am. Pt was completing her menu for next day with staff. Pt with plan for transfusion of one unit of PRBCs due to anemia. No d/c planned for today. Pt reports doing better each day. No identified need for Pal Care to continue visits but we will remain available and return as requested or indicated by pt/Dr/staff.
--- NOTE | 2019-08-17 14:40 | NUR ---
PT TOLLERATING THE TRANSFUSION WELL. IV LASIX GIVEN, LUNG SOUNDS UNCHANGED BP DOWN TO THE 140'S VEWS SCORE 0.
--- NOTE | 2019-08-17 17:10 | NUR ---
CALLED DR SHORE. PT BLOOD TRANSFUSION COMPLETE. IV LASIX GIVEN DURING THE TRANSFUSION. PT FINALLY FELT THE URGE TO USE THE BATHROOM. PVR WAS 279. DR SHORE AWARE NO NEW ORDERS AT THIS TIME.
--- NOTE | 2019-08-17 19:41 | NUR ---
SHIFT SUMARY- BEDSIDE REPORT COMPLETED WITH NIGHT RN KATINA. PT HAS NO C/O PAIN AND NO S&S OF DISTRESS AT THE TIME OF SHIFT CHANGE. NIGHT RN AWARE OF PT URINARY RETENTION ISSUES AND PRN BLADDER SCAN. PVR 278, PER DR SHORE THIS IS ACCEPTABLE AT THIS TIME. PT SLEEPING BUT WOKE TO STAFF VOICES AT SHIFT CHANGE. PT APPEARS TO HAVE BETTER COLOR AND ENERGY THIS EVENING. NIGHT RN ASSUMING CARE.
--- NOTE | 2019-08-18 00:59 | NUR ---
PT UP TO VOID 400ML CLEAR YELLOW FLUID AFTER AMBULATING BATHROOM AND BACK X 1 STANDBY ASSIST VIA GAIT BELT.
--- NOTE | 2019-08-18 04:41 | NUR ---
SHIFT SUMMARY: 69 Y/O OBESE FEMALE RESTED COMFORTABLY ALL SHIFT; PT UP VIA WALKER TO BATHROOM AND VOIDED WITHOUT ISSUE; HAPPY AND COOPERATIVE; DENIES PAIN OR NAUSEA; BED LOW POSITION WITH CALL LIGHT AT SIDE; BED ALARM APPLIED.
[2019-08-18 05:17] LABS: Hematocrit 25.6 % (33.0-51.0)
[2019-08-18 05:49] LABS: Magnesium, Blood 1.8 mg/dL (1.6-2.4)
[2019-08-18 05:56] LABS: Albumin, Blood 2.4 g/dL (3.4-5.0); Anion Gap 9 mmol/L (6-16); Blood Urea Nitrogen 42 mg/dL (8-24); Bun/Creatinine Ratio 10.1 (12.0-20.0); CO2, Blood 19 mmol/L (21-32); Chloride, Blood 105 mmol/L (98-108); Creatinine, Blood 4.14 mg/dL (0.40-1.00); Glomerular Filtration Rate 11 (60-); Glucose, Blood 86 mg/dL (70-99); Phosphorus, Blood 5.8 mg/dL (2.5-4.9); Potassium, Blood 4.7 mmol/L (3.5-5.5); Sodium, Blood 133 mmol/L (136-145)
--- NOTE | 2019-08-18 18:46 | NUR ---
SHIFT SUMMARY: NO ACUTE EVENTS THIS SHIFT. DENIES PAIN. TOOK SHOWER TODAY. AMBULATING WELL WITH FWW AND GAIT BELT, BUT IS STILL UNTEADY. CBG WNL, NO INSULIN REQUIRED. MEDICATED FOR NAUSEA X 1 WITH GOOD RELIEF. TOLERATING LOW FAT DIET, BUT APPETITE IS STILL POOR.
--- NOTE | 2019-08-19 03:48 | NUR ---
SHIFT SUMMARY: 69 Y/O FEMALE RESTED COMFORTABLY ALL SHIFT; DENIES PAIN OR NAUSEA; BED ALARM APPLIED, BED LOW POSITION WITH CALL LIGHT AT SIDE.
[2019-08-19 05:20] LABS: Hematocrit 27.1 % (33.0-51.0); Hemoglobin 8.3 g/dL (11.5-16.0)
[2019-08-19 05:37] LABS: Albumin, Blood 2.4 g/dL (3.4-5.0); Albumin/Globulin Ratio 0.7 (0.8-1.8); Bilirubin, Total 0.3 mg/dL (0.1-1.0); Bun/Creatinine Ratio 10.9 (12.0-20.0); Calcium, Blood 7.9 mg/dL (8.5-10.1); Creatinine, Blood 4.12 mg/dL (0.40-1.00); Globulin, Blood 3.5 g/dL (2.2-4.0); Magnesium, Blood 1.8 mg/dL (1.6-2.4); Potassium, Blood 4.9 mmol/L (3.5-5.5); Total Protein, Blood 5.9 g/dL (6.4-8.2)
--- NOTE | 2019-08-19 10:04 | NUR ---
DR SHORE CAME TO SEE THE PT AND SPOKE TO HER ABOUT HEMODIALYSIS Tx. PER DR SHORE THE PLAN IS TO WAIT UNTIL TOMORROW MORNINGS LABS 08/20/2019, IF THE PT RENAL FUNCTION HAS NOT IMPROVED A DIALYSIS CATH WILL BE PLACED AND THE PT WILL RECIEVE HEMODIALYSIS. PT IS VERY SADDENED ABOUT THIS REVALATION. CALLED NURSING SPONGE HOOKER, IF PASTORAL CARE IS CALLED IN REQUESTED THAT THEY VISIT WITH THIS PT.
--- NOTE | 2019-08-19 20:00 | NUR ---
SHIFT SUMMARY- PT ALERT AND ORIENTED, 1PA TO THE BATHROOM. PT DENIES NEED FOR PAIN MEDICATION. NO S&S OF DISTRESS NOTED. DR SHORE CAME TO SEE THE PT EARLY IN THE SHIFT AND SPOKE TO THE PT ABOUT STARTING HEMODIALYSIS, DEPENDING ON THE LAB RESULTS FROM MORNING LABS. PT IS VERY SADDENED BY THIS INFORMATION. OTHERWISE NO ACUTE CHANGE T/O THE SHIFT.
[2019-08-20 04:52] LABS: Hematocrit 26.8 % (33.0-51.0); Hemoglobin 8.3 g/dL (11.5-16.0)
[2019-08-20 05:06] LABS: Albumin, Blood 2.4 g/dL (3.4-5.0); Anion Gap 7 mmol/L (6-16); Blood Urea Nitrogen 45 mg/dL (8-24); Bun/Creatinine Ratio 11.5 (12.0-20.0); CO2, Blood 18 mmol/L (21-32); Calcium, Blood 7.9 mg/dL (8.5-10.1); Chloride, Blood 104 mmol/L (98-108); Creatinine, Blood 3.92 mg/dL (0.40-1.00); Glomerular Filtration Rate 12 (60-); Glucose, Blood 88 mg/dL (70-99); Magnesium, Blood 1.8 mg/dL (1.6-2.4); Phosphorus, Blood 5.7 mg/dL (2.5-4.9); Potassium, Blood 5.2 mmol/L (3.5-5.5); Sodium, Blood 129 mmol/L (136-145)
--- NOTE | 2019-08-20 05:29 | NUR ---
69 year old Female with acute kidney injury after having issues with not eating & not drinking at home for 4 or 5 days she relates having a gallbladder issue but also says she baseline only has around 1 bowel movement per week. She has been anorexic here discussed need for oral intake to recover & she is trying something this AM. Discussed bowel issues with DR Ramos & she did recieve [address] s[address] last evening. DR ramos oks 1 prn dulcolax supp rectal PRN constipation.PT up in room with standby assist, feeling fairly weak. No stool to guiacc this shift. PT has 2 Son's & 4 Grandsons, encouraged to attempt more oral intake. Continues on NS at 50 ml hour.
[2019-08-20 14:08] LABS: M-SPIKE, % Not Observed % (Not Observed); PROTEIN,TOTAL,URINE 240.8 mg/dL (Not Estab.)
--- NOTE | 2019-08-20 17:45 | NUR ---
Spiritual care note: Winnie admits she had a "bad day" yesterday. But she is feeling more hopeful today b/c her "numbers are better." She has been very concerned about needing dialysis. She beleives that dialysis will hinder her active lifestyle. She admits to feeling worried that she has been unable to eat and has "gotten so weak." She brightend considerably with companionship and encouragement. Caring for her family brings her a sense of purpose/meaning. She is non-yarsanism, but we have an easy rapport. I will continue to provide encouragement/recreational counselor as schedule permits.
--- NOTE | 2019-08-20 18:38 | NUR ---
PT HAS DIMINISHED APPETITE REFUSING MOST OF HER MEALS BUT EATING CHEESE STICKS, CRACKERS, AND DRINKING MILK THROUGH OUT THE DAY. SHE HAS HAD NO PAIN , NVD, OR SOB THIS SHIFT. CALL LIGHT WITHIN REACH.
[2019-08-21 05:11] LABS: Hematocrit 25.9 % (33.0-51.0); Hemoglobin 8.3 g/dL (11.5-16.0)
[2019-08-21 05:30] LABS: Albumin, Blood 2.4 g/dL (3.4-5.0); Anion Gap 7 mmol/L (6-16); Blood Urea Nitrogen 45 mg/dL (8-24); Bun/Creatinine Ratio 12.7 (12.0-20.0); CO2, Blood 21 mmol/L (21-32); Calcium, Blood 7.6 mg/dL (8.5-10.1); Chloride, Blood 100 mmol/L (98-108); Creatinine, Blood 3.53 mg/dL (0.40-1.00); Glomerular Filtration Rate 14 (60-); Glucose, Blood 92 mg/dL (70-99); Magnesium, Blood 1.8 mg/dL (1.6-2.4); Phosphorus, Blood 4.9 mg/dL (2.5-4.9); Potassium, Blood 5.3 mmol/L (3.5-5.5); Sodium, Blood 128 mmol/L (136-145)
--- NOTE | 2019-08-21 07:23 | NUR ---
photodomary ellen turpin le wounds & wound care completed. 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 750 this brown drainage from ng i placed with helpful effect to decrease abd pain
[2019-08-21] MEDS ORDERED: LEVSOD75 PO (11:06)
[2019-08-21] MEDS ORDERED: AMLO5 PO (11:06)
[2019-08-21] MEDS ORDERED: OMEP20ER PO (11:07)
[2019-08-21] MEDS ORDERED: SODBIC650 PO (11:08)
--- NOTE | 2019-08-21 11:27 | NUR ---
PT TO DISCHARGE HOME.IV REMOVED AND PT EDUCTED REGARDING MEDICATIONS.PT INSTRUCTED TO FOLLOW UP WITH DR SHORE AND PCP. PT DRESSED SELF AND WAS WHEELED DOWN TO CAR TO BE TAKEN HOME BY FAMILY.
[2019-09-04] MEDS ORDERED: AZIT500 PO (20:21)
[2019-09-06] MEDS ORDERED: FURO80 PO (09:43)
== END 2019-08-21 11:24 | disposition home or self-care (01) | DRG 683 ==
LOC: ER 10:15 → MEDS 15:12 → PCU 15:12 → MEDS 08-12 13:41
PROVIDERS: Emergency Medicine; Internal Medicine; Internal Medicine Nephrology; Nurse Practitioner Acute Care; Physician Assistant; ADMIT Hospitalist
DX: N17.9 Acute kidney failure, unspecified (principal); K52.1 Toxic gastroenteritis and colitis; E87.1 Hypo-osmolality and hyponatremia; E87.2 Acidosis; Z79.4 Long term (current) use of insulin; E03.9 Hypothyroidism, unspecified; E83.39 Other disorders of phosphorus metabolism; K80.20 Calculus of gallbladder without cholecystitis without obstruction; D63.1 Anemia in chronic kidney disease; E87.5 Hyperkalemia; E11.22 Type 2 diabetes mellitus with diabetic chronic kidney disease; I12.9 Hypertensive chronic kidney disease with stage 1 through stage 4 chronic kidney disease, or unspecified chronic kidney disease; N18.9 Chronic kidney disease, unspecified
CPT/HCPCS: 36415; 36430; 51702; 71045; 76770; 80053; 80069; 81001; 81050; 82010; 82272; 82533; 82550; 82728; 82784; 82800; 82947; 83516; 83520; 83540; 83550; 83690; 83735; 84100; 84156; 84165; 84166; 84443; 84550; 85014; 85018; 85025; 86038; 86256; 86334; 86850; 86900; 86901; 86923; 93005; 93010; 96361; 96374; 96375; 96376; 97116; 97162; 97530; 99285-25; A9270-GY; C9113; J0360; J0881; J1940; J2405; J2765; J7030; J7042; J7070; J7120; P9016

== ENCOUNTER → 2019-11-22 | Outpatient (CLI) | payer OTHER ==
[~2019-11-22] MED LIST changes: +AZIT500 PO; +BASAGLAR K100 UNIT/1 SC; +FURO80 PO; +LEVSOD75 PO; +OMEP20ER PO; +SODBIC650 PO
== END | disposition home or self-care (01) ==
LOC: LAB SHORT 15:51 → LAB 15:51
DX: D64.9 Anemia, unspecified (principal)
CPT/HCPCS: 85018

== ENCOUNTER 2019-12-10 00:32 | Day surgery (SDC) | payer OTHER | END 2019-12-10 22:40 | disposition home or self-care (01) | LOC: WOUND 00:32 | DX: E11.621 Type 2 diabetes mellitus with foot ulcer (principal); I87.2 Venous insufficiency (chronic) (peripheral); E11.59 Type 2 diabetes mellitus with other circulatory complications; L97.829 Non-pressure chronic ulcer of other part of left lower leg with unspecified severity; E11.51 Type 2 diabetes mellitus with diabetic peripheral angiopathy without gangrene; E11.22 Type 2 diabetes mellitus with diabetic chronic kidney disease; I12.0 Hypertensive chronic kidney disease with stage 5 chronic kidney disease or end stage renal disease; N18.6 End stage renal disease; E03.9 Hypothyroidism, unspecified; Z88.0 Allergy status to penicillin; Z88.1 Allergy status to other antibiotic agents; Z79.4 Long term (current) use of insulin; Z79.899 Other long term (current) drug therapy ==

== ENCOUNTER 2020-03-06 14:27 | Emergency (ER) | payer OTHER ==
[~2020-03-06] VITALS: Ht 172.7 cm; Wt 77.1 kg
== END 2020-03-06 19:40 | disposition left against medical advice (07) ==
LOC: ER 14:27
DX: T82.42XA Displacement of vascular dialysis catheter, initial encounter (principal); E11.9 Type 2 diabetes mellitus without complications; I10 Essential (primary) hypertension; E03.9 Hypothyroidism, unspecified; Z88.0 Allergy status to penicillin; Z88.1 Allergy status to other antibiotic agents; Z79.899 Other long term (current) drug therapy
CPT/HCPCS: 99283

== ENCOUNTER → 2020-03-07 | Outpatient (CLI) | payer OTHER ==
[2020-03-07 17:26] LABS: Albumin, Blood 2.8 g/dL (3.4-5.0); Anion Gap 10 mmol/L (6-16); Blood Urea Nitrogen 49 mg/dL (8-24); Bun/Creatinine Ratio 11.6 (12.0-20.0); CO2, Blood 25 mmol/L (21-32); Calcium, Blood 9.1 mg/dL (8.5-10.1); Chloride, Blood 99 mmol/L (98-108); Creatinine, Blood 4.22 mg/dL (0.40-1.00); Glomerular Filtration Rate 11 (60-); Glucose, Blood 89 mg/dL (70-99); Potassium, Blood 4.2 mmol/L (3.5-5.5); Sodium, Blood 134 mmol/L (136-145)
== END ==
LOC: LAB 15:38 → LAB SHORT 15:38
PROVIDERS: Internal Medicine Nephrology
DX: N18.6 End stage renal disease (principal)
CPT/HCPCS: 80069

== ENCOUNTER 2020-03-10 10:15 | Emergency (ER) | payer OTHER ==
[~2020-03-10] VITALS: Ht 172.7 cm; Wt 77.1 kg
[2020-03-10 12:32] LABS: Influenza A, PCR Negative (NEGATIVE); Influenza B, PCR Negative (NEGATIVE); Resp Syncytial Virus, PCR Negative (NEGATIVE); SARS-Cov-2 (COVID-19) PCR, MMC Negative (NEGATIVE)
[2020-03-10 15:34] LABS: Hematocrit 32.1 % (33.0-51.0); Mean Corpuscular HGB 29.5 pg (26.0-34.0); Mean Corpuscular HGB Conc 31.2 g/dL (31.5-36.5); Mean Corpuscular Volume 95 fL (80-100); Mean Platelet Volume 9.5 fL (9.1-12.4); Platelet Count 281 K/mm3 (150-400); RDW Coefficient Variation 13.7 % (11.7-14.2); RDW Standard Deviation 47.8 fL (35.1-46.3); Red Blood Cell Count 3.39 M/mm3 (3.80-5.20); White Blood Cell Count 10.53 K/mm3 (4.00-11.30)
[2020-03-10 15:50] LABS: International Normalized Ratio 0.97; Prothrombin Time Results 10.4 Sec (9.7-11.5)
[2020-03-10 15:52] LABS: Bun/Creatinine Ratio 13.7 (12.0-20.0); Calcium, Blood 8.7 mg/dL (8.5-10.1); Creatinine, Blood 4.31 mg/dL (0.40-1.00); Potassium, Blood 4.5 mmol/L (3.5-5.5)
--- NOTE | 2020-03-10 18:07 | NUR ---
FOLLOWED PT TO RECOVERY FROM PROCEDURE. PT ALERT, AWAKE, AND TALKING. DISCHARGE GONE OVER WITH PT, PT VERBALIZES UNDERSTANDING OF INSTRUCTIONS. SALINE LOCK REMOVED WITH CATHETER INTACT. PT TO PRIVATE VEHICLE PER W/C WITH ONE STAFF.
== END 2020-03-10 15:59 | disposition home or self-care (01) ==
LOC: ER 10:15
PROVIDERS: Radiology Diagnostic Radiology
DX: T82.49XA Other complication of vascular dialysis catheter, initial encounter (principal); E11.9 Type 2 diabetes mellitus without complications; Z20.822 Contact with and (suspected) exposure to COVID-19; Z99.2 Dependence on renal dialysis; Z79.4 Long term (current) use of insulin; Z79.899 Other long term (current) drug therapy
CPT/HCPCS: 0241U; 36415; 36558; 76937; 77001; 80048; 85027; 85610; 99152; 99285-25; C1750; C1769; C1894; J1644; J2250; J3010; J7040; J7050

== ENCOUNTER 2020-03-17 00:37 | Day surgery (SDC) | payer OTHER | END 2020-03-17 22:39 | disposition home or self-care (01) | LOC: WOUND 00:37 | DX: E11.621 Type 2 diabetes mellitus with foot ulcer (principal); E11.622 Type 2 diabetes mellitus with other skin ulcer; L97.522 Non-pressure chronic ulcer of other part of left foot with fat layer exposed; L97.422 Non-pressure chronic ulcer of left heel and midfoot with fat layer exposed; L97.822 Non-pressure chronic ulcer of other part of left lower leg with fat layer exposed; S51.852D Open bite of left forearm, subsequent encounter; W55.01XD Bitten by cat, subsequent encounter; E11.40 Type 2 diabetes mellitus with diabetic neuropathy, unspecified; E11.22 Type 2 diabetes mellitus with diabetic chronic kidney disease; I12.0 Hypertensive chronic kidney disease with stage 5 chronic kidney disease or end stage renal disease; N18.6 End stage renal disease; Z88.1 Allergy status to other antibiotic agents; Z88.0 Allergy status to penicillin; Z79.4 Long term (current) use of insulin; Z99.2 Dependence on renal dialysis | CPT/HCPCS: A9270; G0463 ==

== ENCOUNTER 2020-03-24 00:31 | Day surgery (SDC) | payer OTHER | END 2020-03-24 23:45 | LOC: WOUND 00:31 | DX: E11.621 Type 2 diabetes mellitus with foot ulcer (principal); L97.522 Non-pressure chronic ulcer of other part of left foot with fat layer exposed; S58.91 Complete traumatic amputation of forearm, level unspecified; E11.622 Type 2 diabetes mellitus with other skin ulcer; E11.22 Type 2 diabetes mellitus with diabetic chronic kidney disease; I12.0 Hypertensive chronic kidney disease with stage 5 chronic kidney disease or end stage renal disease; N18.6 End stage renal disease; E03.9 Hypothyroidism, unspecified; Z98.890 Other specified postprocedural states; Z99.2 Dependence on renal dialysis | CPT/HCPCS: A9270 ==

== ENCOUNTER 2020-04-04 02:18 | Day surgery (SDC) | payer OTHER | END 2020-04-04 22:43 | disposition home or self-care (01) | LOC: WOUND 02:18 | DX: E11.621 Type 2 diabetes mellitus with foot ulcer (principal); L97.522 Non-pressure chronic ulcer of other part of left foot with fat layer exposed; E11.622 Type 2 diabetes mellitus with other skin ulcer; I12.0 Hypertensive chronic kidney disease with stage 5 chronic kidney disease or end stage renal disease; E11.22 Type 2 diabetes mellitus with diabetic chronic kidney disease; N18.6 End stage renal disease | CPT/HCPCS: A9270 ==

== ENCOUNTER 2020-04-18 01:50 | Day surgery (SDC) | payer OTHER | END 2020-04-18 22:43 | disposition home or self-care (01) | LOC: WOUND 01:50 | DX: E11.621 Type 2 diabetes mellitus with foot ulcer (principal); L97.522 Non-pressure chronic ulcer of other part of left foot with fat layer exposed; L97.422 Non-pressure chronic ulcer of left heel and midfoot with fat layer exposed; E11.622 Type 2 diabetes mellitus with other skin ulcer; S51.802D Unspecified open wound of left forearm, subsequent encounter; E03.9 Hypothyroidism, unspecified; E11.22 Type 2 diabetes mellitus with diabetic chronic kidney disease; I12.0 Hypertensive chronic kidney disease with stage 5 chronic kidney disease or end stage renal disease; N18.6 End stage renal disease; Z99.2 Dependence on renal dialysis; X58.XXXD Exposure to other specified factors, subsequent encounter | CPT/HCPCS: A9270 ==

== ENCOUNTER 2020-04-25 01:05 | Day surgery (SDC) | payer OTHER | END 2020-04-25 22:46 | disposition home or self-care (01) | LOC: WOUND 01:05 | DX: E11.621 Type 2 diabetes mellitus with foot ulcer (principal); L97.522 Non-pressure chronic ulcer of other part of left foot with fat layer exposed; L97.422 Non-pressure chronic ulcer of left heel and midfoot with fat layer exposed; E11.22 Type 2 diabetes mellitus with diabetic chronic kidney disease; I12.0 Hypertensive chronic kidney disease with stage 5 chronic kidney disease or end stage renal disease; N18.6 End stage renal disease; E03.9 Hypothyroidism, unspecified; E11.622 Type 2 diabetes mellitus with other skin ulcer; T24.232D Burn of second degree of left lower leg, subsequent encounter; Z99.2 Dependence on renal dialysis | CPT/HCPCS: A9270 ==

== ENCOUNTER 2020-05-02 00:52 | Day surgery (SDC) | payer OTHER | END 2020-05-02 23:06 | disposition home or self-care (01) | LOC: WOUND 00:52 | DX: E11.621 Type 2 diabetes mellitus with foot ulcer (principal); E11.622 Type 2 diabetes mellitus with other skin ulcer; L97.422 Non-pressure chronic ulcer of left heel and midfoot with fat layer exposed; T24.202D Burn of second degree of unspecified site of left lower limb, except ankle and foot, subsequent encounter; X08.8XXD Exposure to other specified smoke, fire and flames, subsequent encounter; I12.0 Hypertensive chronic kidney disease with stage 5 chronic kidney disease or end stage renal disease; E11.22 Type 2 diabetes mellitus with diabetic chronic kidney disease; N18.6 End stage renal disease; Z99.2 Dependence on renal dialysis; E03.9 Hypothyroidism, unspecified | CPT/HCPCS: A9270 ==

== ENCOUNTER 2020-05-09 00:34 | Day surgery (SDC) | payer OTHER | END 2020-05-09 22:41 | disposition home or self-care (01) | LOC: WOUND 00:34 | DX: E11.621 Type 2 diabetes mellitus with foot ulcer (principal); L97.422 Non-pressure chronic ulcer of left heel and midfoot with fat layer exposed; T24.232D Burn of second degree of left lower leg, subsequent encounter; X02.0XXD Exposure to flames in controlled fire in building or structure, subsequent encounter; I12.0 Hypertensive chronic kidney disease with stage 5 chronic kidney disease or end stage renal disease; E11.22 Type 2 diabetes mellitus with diabetic chronic kidney disease; N18.6 End stage renal disease; E03.9 Hypothyroidism, unspecified; Z99.2 Dependence on renal dialysis | CPT/HCPCS: A9270 ==

== ENCOUNTER 2020-09-21 14:36 | Emergency (ER) | payer OTHER ==
[~2020-09-21] VITALS: Ht 165.1 cm; Wt 68.0 kg
[~2020-09-21 14:36] MED LIST changes: -BASAGLAR K100 UNIT/1 SC; +HUMALOG KW100 UNIT/1 SC
[2020-09-21] MEDS ORDERED: Prednisone20 MG PO (17:43)
== END 2020-09-21 17:51 | disposition home or self-care (01) ==
LOC: ER 14:36
DX: S29.012A Strain of muscle and tendon of back wall of thorax, initial encounter (principal); E11.40 Type 2 diabetes mellitus with diabetic neuropathy, unspecified; Z79.4 Long term (current) use of insulin; Z79.52 Long term (current) use of systemic steroids; Z79.899 Other long term (current) drug therapy; Z88.0 Allergy status to penicillin; Z88.1 Allergy status to other antibiotic agents; X58.XXXA Exposure to other specified factors, initial encounter
CPT/HCPCS: 72070; 99283-25; J7512

== ENCOUNTER 2020-10-10 02:34 | Inpatient (IN) | payer OTHER ==
[~2020-10-10] VITALS: Ht 162.6 cm; Wt 54.4 kg
[~2020-10-10 02:34] MED LIST changes: +Prednisone20 MG PO
[2020-10-10 02:50] LABS: Calcium, Ionized (POC) 0.97 mmol/L (1.10-1.46); Chloride (POC) 87 mmol/L (98-108); Creatinine (POC) 4.1 mg/dL (0.6-1.0); Glucose (ISTAT POC) 119 mg/dL (70-99); Hemoglobin (POC) 9.2 g/dL (12.0-16.0); Potassium (POC) 3.3 mmol/L (3.5-5.5); Sodium (POC) 130 mmol/L (135-148); Total CO2 (POC) 28 mmol/L (21-32)
[2020-10-10 03:01] LABS: Hematocrit 27.7 % (33.0-51.0); Mean Corpuscular HGB 32.6 pg (26.0-34.0); Mean Corpuscular HGB Conc 32.5 g/dL (31.5-36.5); Mean Corpuscular Volume 100 fL (80-100); Mean Platelet Volume 10.3 fL (9.1-12.4); Platelet Count 132 K/mm3 (150-400); RDW Coefficient Variation 13.7 % (11.7-14.2); RDW Standard Deviation 50.4 fL (35.1-46.3); Red Blood Cell Count 2.76 M/mm3 (3.80-5.20); White Blood Cell Count 8.86 K/mm3 (4.00-11.30)
[2020-10-10 03:10] LABS: Source, Urine Catheter
[2020-10-10 03:12] LABS: Bilirubin, Urine Neg (Neg); Blood, Urine 1+ (Neg); Glucose Qualitative, Urine Neg (Neg); Ketones, Urine Neg (Neg); Leukocyte Esterase, Urine 1+ (Neg); Nitrite, Urine Neg (Neg); Protein, Urine 3+ (Neg); Specific Gravity, Urine 1.005 (1.003-1.022); Urobilinogen, Urine NORM (Normal)
[2020-10-10 03:19] LABS: Appearance, Urine Clear (Clear); Color, Urine Yellow (P-Yellow)
[2020-10-10 03:22] LABS: Alanine Aminotransfer (ALT/SGP 10 U/L (12-78); Albumin, Blood 2.5 g/dL (3.4-5.0); Albumin/Globulin Ratio 0.7 (0.8-1.8); Alk Phos 64 U/L (50-136); Anion Gap 10 mmol/L (6-16); Aspartate Aminotrans (AST/SGOT 23 U/L (12-37); Bilirubin, Total 0.7 mg/dL (0.1-1.0); Blood Urea Nitrogen 34 mg/dL (8-24); Bun/Creatinine Ratio 8.5 (12.0-20.0); CO2, Blood 28 mmol/L (21-32); CPK Creatine Kinase 92 U/L (26-193); Calcium, Blood 7.6 mg/dL (8.5-10.1); Chloride, Blood 91 mmol/L (98-108); Creatinine, Blood 4.01 mg/dL (0.40-1.00); Ethanol (Alcohol), Blood, Med <3 mg/dL; Globulin, Blood 3.4 g/dL (2.2-4.0); Glomerular Filtration Rate 11 (60-); Glucose, Blood 114 mg/dL (70-99); Magnesium, Blood 1.7 mg/dL (1.6-2.4); Potassium, Blood 3.4 mmol/L (3.5-5.5); Sodium, Blood 129 mmol/L (136-145); Total Protein, Blood 5.9 g/dL (6.4-8.2); Troponin I 0.404 ng/mL (0.000-0.040)
[2020-10-10 03:22] LABS: Bacteria Mod /hpf; Squamous Epithelial Cells Mod /hpf (Few)
[2020-10-10 03:26] LABS: BAND PERCENT MAN 23 % (0-8); BASOPHILS ABSOLUTE MAN 0.08 K/mm3 (0.00-0.23); BASOPHILS PERCENT MAN 1 % (0-2); EOSINOPHILS PERCENT MAN 0 % (0-6); LYMPHOCYTES ABSOLUTE MAN 0.08 K/mm3 (0.84-5.20); LYMPHOCYTES PERCENT MAN 1 % (21-46); MONOCYTES ABSOLUTE MAN 0.08 K/mm3 (0.16-1.47); MONOCYTES PERCENT MAN 1 % (4-13); NEUTROPHILS ABSOLUTE MAN 8.59 K/mm3 (1.96-9.15); SEG NEUTROPHILS PERCENT MAN 74 % (41-73); TOTAL CELLS COUNTED 100
[2020-10-10 03:28] LABS: U Amphetamine Screen Not Detected; U Barbituate Screen Not Detected; U Benzodiazapine Screen Not Detected; U Buprenorphine Screen Not Detected; U Cannabinoids Screen DETECTED; U Cocaine Screen Not Detected; U Methadone Screen Not Detected; U Methamphetamine Screen Not Detected; U Opiates Screen Not Detected; U Oxycodone Screen DETECTED; U Phencyclidine Screen Not Detected; U Propoxyphene Screen Not Detected
[2020-10-10 03:30] LABS: Creatine Kinase MB <1.0 ng/mL (0.0-3.6); Creatine Kinase MB Index Unable to Calculate (0.0-4.0)
[2020-10-10] MEDS ORDERED: MEGESTROL400 MG/11 PO (11:46)
[2020-10-10] MEDS ORDERED: CLON.1 PO (11:48)
[2020-10-10] MEDS ORDERED: CALCIUM ACETAT667 M2 PO (11:48)
[2020-10-10] MEDS ORDERED: PANTOPRAZOLE SO40 M2 PO (11:49)
--- NOTE | 2020-10-10 16:55 | NUR ---
UPDATE PHYSICIAN UPDATED ON CRITICAL LAB VALUES, SEE EHR. PALLIATIVE CARE CONSULTING WITH FAMILY D/T PT'S STATUS. FAMILY HAS CHOSEN TO HAVE PT MOVE INTO COMFORT CARE AT THIS TIME. RESTRAINTS HAVE BEEN DC'D. WILL CONT TO MONITOR.
--- NOTE | 2020-10-10 18:14 | NUR ---
SHIFT SUMMARY/UPDATE ASSUMED CARE OF PT THIS AFTERNOON. PT HAD DIALYSIS TODAY. PT CONFUSED. PUPILS UNEQUAL IN SIZE, NON REACTIVE TO LIGHT. PT KNOWS NAME, DATE OF AND LOCATION AT TIMES. SPEECH THERAPY TO SEE PT. PALLIATIVE CARE TO SEE PT. PHYSICIAN INFORMED OF PT'S INCREASE IN TROPONIN AND CRITICAL RESULTS. NO ORDERS. SPENCER IN PLACE TO GRAVITY DRAIN. FAMILY DECIDED FOR PT TO MOVE ONTO COMFORT CARE MEASURES. COMFORT CARE ORDERS PLACED PER PALLIATIVE CARE. FAMILY TO VISIT PT THIS EVENING. PT RESTING COMFORTABLY IN BED AT THIS TIME. NO DISTRESS SEEN. ORAL CARE PROVIDED. WILL CONT TO MONITOR UNTIL REPORT GIVEN TO NIGHTSHIFT RN.
--- NOTE | 2020-10-11 11:10 | NUR ---
Call back rounding - Pt was non-responsive. This PC identified his person and offered a supplication on her behalf. I will remain available.
--- NOTE | 2020-10-11 16:04 | NUR ---
Comfort Care Visit Spoke with Primary RN Shanta prior to visit and discussed case. Pt spitting out oral comfort medications and request for IV meds. Pt also refusing oral care. Called and spoke with Dr Muller. Placed order for IV morphine, and IV Ativan per V/O from Dr Muller. Pt resting in bed with her eyes closed. No family at bedside. Pt appears comfortable with no S/S of distress at this time. Pt left undisturbed. Palliative Care will remain available.
== END 2020-10-11 22:28 | DRG 871 ==
LOC: ER 02:34 → ERHOLD 06:18 → PCU 13:58 → MEDS 22:19
PROVIDERS: Emergency Medicine; ADMIT Family Medicine
DX: A41.9 Sepsis, unspecified organism (principal); N18.6 End stage renal disease; R65.21 Severe sepsis with septic shock; G92 Toxic encephalopathy; E87.2 Acidosis; N25.81 Secondary hyperparathyroidism of renal origin; E87.1 Hypo-osmolality and hyponatremia; I12.0 Hypertensive chronic kidney disease with stage 5 chronic kidney disease or end stage renal disease; Z51.5 Encounter for palliative care; Z66 Do not resuscitate; E87.6 Hypokalemia; E11.42 Type 2 diabetes mellitus with diabetic polyneuropathy; E11.22 Type 2 diabetes mellitus with diabetic chronic kidney disease; E86.0 Dehydration; D63.1 Anemia in chronic kidney disease; Z99.2 Dependence on renal dialysis; Z88.0 Allergy status to penicillin; Z88.1 Allergy status to other antibiotic agents; Z98.890 Other specified postprocedural states; Z79.52 Long term (current) use of systemic steroids; Z79.4 Long term (current) use of insulin; Z79.899 Other long term (current) drug therapy; Z95.828 Presence of other vascular implants and grafts; Z91.15 Patient's noncompliance with renal dialysis
CPT/HCPCS: 36415; 51702; 70450; 71045; 80047; 80053; 81001; 82550; 82553; 83605; 83690; 83735; 83880; 84145; 84484; 85014; 85025; 87040; 87077; 87086; 87147; 87186; 93005; 93010; 96361; 96365-59; 96367-59; 99285-25; A9270; G0480; J0692; J0696; J3370; J7120